=== PATIENT | female | born 1995 | race Caucasian/White ===

== ENCOUNTER 2016-07-13 18:40 | Emergency (ER) | payer OTHER ==
[2016-07-13 18:52] VITALS: BP 142/91; PULSE 79; TEMP 98.6
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
[2016-07-13 19:28] VITALS: RESP 18
--- NOTE | 2016-07-13 19:33 | XR ---
EXAMINATION TYPE: XR ankle complete LT DATE OF EXAM: 07/13/2016 7:13 PM COMPARISON: NONE HISTORY: Ankle pain TECHNIQUE: 3 views FINDINGS: There is soft tissue swelling around the ankle joint. I see no fracture nor dislocation. An kle mortise is anatomic. IMPRESSION: Soft tissue swelling. No fracture.
== END 2016-07-13 19:55 | disposition home or self-care (01) ==
LOC: EC 18:40
DX: S93.402A Sprain of unspecified ligament of left ankle, initial encounter (principal); Z79.899 Other long term (current) drug therapy; V87.8XXA Person injured in other specified noncollision transport accidents involving motor vehicle (traffic), initial encounter; X50.1XXA Overexertion from prolonged static or awkward postures, initial encounter; Y92.410 Unspecified street and highway as the place of occurrence of the external cause
CPT/HCPCS: 99284

== ENCOUNTER 2018-11-13 17:29 | Emergency (ER) | payer OTHER ==
[2018-11-13] MEDS ORDERED: SODIUM CHLORIDE 0.9% 1,000 ML IV STA (18:09)
[2018-11-13 18:20] LABS: Anisocytosis Slight; HCT 39.2 % (34.0-46.0); HGB 13.4 gm/dL (11.4-16.0); MCHC 34.2 g/dL (31.0-37.0); MCV 76.2 fL (80.0-100.0); Mean Platelet Volume 7.5; Microcytosis Slight; Platelet Count 214 k/uL (150-450); RBC 5.14 m/uL (3.80-5.40); RDW 16.8 % (11.5-15.5); WBC 6.6 k/uL (3.8-10.6)
[2018-11-13 18:33] LABS: ALT 48 U/L (9-52); AST 77 U/L (14-36); African American GFR (CKD) >90 (>60 ml/min/1.73 sqM); Albumin 4.1 g/dL (3.5-5.0); Alkaline Phosphatase 161 U/L (38-126); Amylase 60 U/L (30-110); Anion Gap 10 mmol/L; Blood Urea Nitrogen 10 mg/dL (7-17); Carbon Dioxide 26 mmol/L (22-30); Chloride 99 mmol/L (98-107); Glucose 103 mg/dL (74-99); Non-African American GFR(CKD) 87 (>60 ml/min/1.73 sqM); Potassium 3.7 mmol/L (3.5-5.1); Sodium 135 mmol/L (137-145); Total Bilirubin 1.6 mg/dL (0.2-1.3); Total Protein 7.9 g/dL (6.3-8.2)
--- NOTE | 2018-11-13 18:34 | ED ---
Abdominal Pain HPI - General Chief Complaint: Abdominal Pain Stated Complaint: abdominal pain x 1 week, not eating Time Seen by Provider: 11/13/18 17:48 Source: patient Mode of arrival: ambulatory Limitations: no limitations - History of Present Illness Initial Comments: Patient is a 23-year-old female presenting to emergency Department with a chief complaint of abdominal pain. Patient reports nausea and vomiting for the last 7 days without improvement. Patient reports worsen she developed left flank pain that is exacerbated with flexion of the left side. Patient reports poor by mouth intake. Patient reports going to the urgent care on Wednesday who noticed elevated bilirubin levels and suggested follow-up with primary care. Patient followed up the following day with primary care who performed a urine dip and decided to treat the patient for UTI. Patient is currently on the third day of Bactrim with minimal improvement. Patient reports yesterday she noticed dark stool and is symptoms develop generalized suprapubic tenderness. Patient denies increased urgency, frequency or dysuria patient denies vaginal discharge or bleeding. Patient denies hematuria. Patient is taking oral contraceptives and her last menstrual period was on October 25. Patient is not concerned for STDs or . Patient denies fever, chest pain, chest tightness, night sweats or chills. - Related Data Home Medications Medication Instructions Recorded Confirmed Omeprazole 20 mg PO DAILY 07/13/16 10/12/16 Allergies Allergy/AdvReac Type Severity Reaction Status Date / Time No Known Allergies Allergy Verified 11/13/18 17:34 Review of Systems ROS Statement: Those systems with pertinent positive or pertinent negative responses have been documented in the HPI. ROS Other: All systems not noted in ROS Statement are negative. Past Medical History Past Medical History: No Reported History History of Any Multi-Drug Resistant Organisms: None Reported Past Surgical History: No Surgical Hx Reported Past Psychological History: No Psychological Hx Reported Smoking Status: Never smoker Past Alcohol Use History: None Reported Past Drug Use History: None Reported General Exam Limitations: no limitations General appearance: alert, in no apparent distress Head exam: Present: atraumatic, normocephalic, normal inspection Eye exam: Present: normal appearance, PERRL, EOMI Pupils: Present: normal accommodation ENT exam: Present: normal exam, mucous membranes moist, normal external ear exam Neck exam: Present: normal inspection, full ROM Respiratory exam: Present: normal lung sounds bilaterally Cardiovascular Exam: Present: regular rate, normal rhythm, normal heart sounds GI/Abdominal exam: Present: soft, normal bowel sounds. Absent: tenderness (Mild, generalized suprapubic tenderness) Extremities exam: Present: normal inspection, full ROM Back exam: Present: normal inspection, full ROM Neurological exam: Present: alert, oriented X3 Psychiatric exam: Present: normal affect, normal mood Skin exam: Present: warm, intact, normal color Course Vital Signs 11/13/18 11/13/18 17:30 20:00 Temperature 99.2 F 98.7 F Pulse Rate 106 H 98 Respiratory 20 17 Rate Blood Pressure 131/84 133/91 O2 Sat by Pulse 96 96 Oximetry Medical Decision Making - Medical Decision Making Patient is a 23-year-old male presenting to emergency Department with a chief complaint of abdominal pain. Urine hCG is negative. UA is showing a possible UTI although I have very low suspicion as patient is asymptomatic. And the urine sample appears to be contaminated. AST is elevated with 2:1 ratio AST to ALT. I have low suspicion for a kidney stone due to the severity of the pain in the left flank region that appears to be exacerbated with specific anatomical positions. Mother and patient advised to follow-up with primary care regarding the elevated bilirubin and liver enzymes. KUB is unremarkable. On physical examination the patient does not appear to be in discomfort. At this time I have low suspicion for any acute abdominal pathology. Patient had her last nausea. About 2 weeks ago and is on oral contraceptives. Patient denies any discharge or vaginal bleeding. Patient is not concerned for STDs. Patient declined pelvic exam. Patient advised to follow-up with primary care for further treatment. Strict return parameters were thoroughly discussed with patient and parent were understanding and agreeable. Case discussed with physician. - Lab Data Result diagrams: 11/13/18 18:00 11/13/18 18:00 Lab Results 11/13/18 11/13/18 11/13/18 Range/Units 18:00 18:00 18:00 WBC 6.6 (3.8-10.6) k/uL RBC 5.14 (3.80-5.40) m/uL Hgb 13.4 (11.4-16.0) gm/dL Hct 39.2 (34.0-46.0) % MCV 76.2 L (80.0-100.0) fL MCH 26.0 (25.0-35.0) pg MCHC 34.2 (31.0-37.0) g/dL RDW 16.8 H (11.5-15.5) % Plt Count 214 (150-450) k/uL Neutrophils % (Manual) 51 % Lymphocytes % (Manual) 32 % Monocytes % (Manual) 13 % Eosinophils % (Manual) 4 % Neutrophils # (Manual) 3.37 (1.3-7.7) k/uL Lymphocytes # (Manual) 2.11 (1.0-4.8) k/uL Monocytes # (Manual) 0.86 (0-1.0) k/uL Eosinophils # (Manual) 0.26 (0-0.7) k/uL Nucleated RBCs 0 (0-0) /100 WBC Manual Slide Review Performed Anisocytosis Slight Microcytosis Slight Sodium 135 L (137-145) mmol/L Potassium 3.7 (3.5-5.1) mmol/L Chloride 99 (98-107) mmol/L Carbon Dioxide 26 (22-30) mmol/L Anion Gap 10 mmol/L BUN 10 (7-17) mg/dL Creatinine 0.94 (0.52-1.04) mg/dL Est GFR (CKD-EPI)AfAm >90 (>60 ml/min/1.73 sqM) Est GFR (CKD-EPI)NonAf 87 (>60 ml/min/1.73 sqM) Glucose 103 H (74-99) mg/dL Calcium 9.0 (8.4-10.2) mg/dL Total Bilirubin 1.6 H (0.2-1.3) mg/dL AST 77 H (14-36) U/L ALT 48 (9-52) U/L Alkaline Phosphatase 161 H (38-126) U/L Total Protein 7.9 (6.3-8.2) g/dL Albumin 4.1 (3.5-5.0) g/dL Amylase 60 (30-110) U/L Lipase 90 (23-300) U/L Urine Color Dark Brown Urine Appearance Cloudy H (Clear) Urine pH 6.5 (5.0-8.0) Ur Specific [place] 1.028 (1.001-1.035) Urine Protein 1+ H (Negative) Urine Glucose (UA) Negative (Negative) Urine Ketones Trace H (Negative) Urine Blood Negative (Negative) Urine Nitrite Negative (Negative) Urine Bilirubin 2+ H (Negative) Urine Urobilinogen >12.0 (<2.0) mg/dL Ur Leukocyte Esterase Large H (Negative) Urine RBC 4 (0-5) /hpf Urine WBC 57 H (0-5) /hpf Ur Squamous Epith Cells 24 H (0-4) /hpf Amorphous Sediment Rare H (None) /hpf Urine Bacteria Occasional H (None) /hpf Hyaline Casts 3 H (0-2) /lpf Urine Mucus Moderate H (None) /hpf Urine HCG, Qual (Not Detectd) 11/13/18 Range/Units 18:00 WBC (3.8-10.6) k/uL RBC (3.80-5.40) m/uL Hgb (11.4-16.0) gm/dL Hct (34.0-46.0) % MCV (80.0-100.0) fL MCH (25.0-35.0) pg MCHC (31.0-37.0) g/dL RDW (11.5-15.5) % Plt Count (150-450) k/uL Neutrophils % (Manual) % Lymphocytes % (Manual) % Monocytes % (Manual) % Eosinophils % (Manual) % Neutrophils # (Manual) (1.3-7.7) k/uL Lymphocytes # (Manual) (1.0-4.8) k/uL Monocytes # (Manual) (0-1.0) k/uL Eosinophils # (Manual) (0-0.7) k/uL Nucleated RBCs (0-0) /100 WBC Manual Slide Review Anisocytosis Microcytosis Sodium (137-145) mmol/L Potassium (3.5-5.1) mmol/L Chloride (98-107) mmol/L Carbon Dioxide (22-30) mmol/L Anion Gap mmol/L BUN (7-17) mg/dL Creatinine (0.52-1.04) mg/dL Est GFR (CKD-EPI)AfAm (>60 ml/min/1.73 sqM) Est GFR (CKD-EPI)NonAf (>60 ml/min/1.73 sqM) Glucose (74-99) mg/dL Calcium (8.4-10.2) mg/dL Total Bilirubin (0.2-1.3) mg/dL AST (14-36) U/L ALT (9-52) U/L Alkaline Phosphatase (38-126) U/L Total Protein (6.3-8.2) g/dL Albumin (3.5-5.0) g/dL Amylase (30-110) U/L Lipase (23-300) U/L Urine Color Urine Appearance (Clear) Urine pH (5.0-8.0) Ur Specific [place] (1.001-1.035) Urine Protein (Negative) Urine Glucose (UA) (Negative) Urine Ketones (Negative) Urine Blood (Negative) Urine Nitrite (Negative) Urine Bilirubin (Negative) Urine Urobilinogen (<2.0) mg/dL Ur Leukocyte Esterase (Negative) Urine RBC (0-5) /hpf Urine WBC (0-5) /hpf Ur Squamous Epith Cells (0-4) /hpf Amorphous Sediment (None) /hpf Urine Bacteria (None) /hpf Hyaline Casts (0-2) /lpf Urine Mucus (None) /hpf Urine HCG, Qual Not Detected (Not Detectd) Disposition Clinical Impression: Abdominal pain Disposition: HOME SELF-CARE Condition: Stable Instructions (If sedation given, give patient instructions): Abdominal Pain (ED) Additional Instructions: Please follow with primary care. Please return to emergency department if symptoms worsen. Alternate between Tylenol and ibuprofen for pain control. Is patient prescribed a controlled substance at d/c from ED?: No Referrals: Yashira Hansen MD [Primary Care Provider] - 1-2 days Time of Disposition: 19:37
[2018-11-13 18:52] LABS: Amorphous Sediment,Urine Rare /hpf; Appearance,Urine Cloudy (Clear); Bacteria,Urine Occasional /hpf; Bilirubin,Urine 2+ (Negative); Blood,Urine Negative (Negative); Color,Urine Dark Brown; Glucose,Urine (UA) Negative (Negative); Hyaline Casts,Urine 3 /lpf (0-2); Ketones,Urine Trace (Negative); Leukocyte Esterase,Urine Large (Negative); Mucus,Urine Moderate /hpf; Nitrite,Urine Negative (Negative); PH, Urine 6.5 (5.0-8.0); Protein,Urine 1+ (Negative); RBC,Urine 4 /hpf (0-5); Specific Gravity,Urine 1.028 (1.001-1.035); Squamous Epithelial Cell,Urine 24 /hpf (0-4); Urobilinogen,Urine >12.0 mg/dL (<2.0); WBC,Urine 57 /hpf (0-5)
[2018-11-13 19:07] LABS: Eosinophils # (M) 0.26 k/uL (0-0.7); Lymphocytes # (M) 2.11 k/uL (1.0-4.8); Monocytes # (M) 0.86 k/uL (0-1.0); Neutrophils # (M) 3.37 k/uL (1.3-7.7); Neutrophils % (M) 51 %; Nucleated Red Blood Cells 0 /100 WBC (0-0); Total Cells Counted 100
--- NOTE | 2018-11-13 19:10 | XR ---
EXAMINATION TYPE: XR KUB DATE OF EXAM: 11/13/2018 COMPARISON: NONE HISTORY: Abdominal pain TECHNIQUE: 2 views upright FINDINGS: Bowel gas pattern is normal. There is no sign of intestinal obstruction or pneumoperitoneum . Fecal pattern is normal. Lung bases are clear. There are no pathologic calcifications. IMPRESSION: Nonacute abdomen.
[2018-11-13 20:09] VITALS: BP 133/91; PULSE 98; RESP 17; TEMP 98.7
== END 2018-11-13 20:01 | disposition home or self-care (01) ==
LOC: EC 17:29
DX: R10.31 Right lower quadrant pain (principal); R74.0 Nonspecific elevation of levels of transaminase and lactic acid dehydrogenase [LDH]; E80.7 Disorder of bilirubin metabolism, unspecified; R94.5 Abnormal results of liver function studies; R11.2 Nausea with vomiting, unspecified; R63.0 Anorexia; Z53.29 Procedure and treatment not carried out because of patient's decision for other reasons; Z79.899 Other long term (current) drug therapy
CPT/HCPCS: 36415; 74018; 80053; 81001; 81025; 82150; 83690; 85025; 87086; 96360; 99284

== ENCOUNTER → 2018-11-24 | Outpatient (CLI) | payer OTHER ==
--- NOTE | 2018-11-24 10:36 | NM ---
EXAMINATION TYPE: NM hepatobiliary w EF DATE OF EXAM: 11/24/2018 COMPARISON: NONE HISTORY: Upper abdominal lower abdominal pain per order. Diminished appetite with heartburn and reflu x nausea and vomiting all per patient. TECHNIQUE: After the intravenous administration of 5 mCi Tc 99m Mebrofenin hepatobiliary scintigraphy is performed. Immediate images post injection. FINDINGS: There is satisfactory initial accumulation of tracer by the liver. The gallbladder is not visualized even after 60 minutes. Gallbladder is then faintly visualized at 90 minutes and better visualized at 120 minutes. The small bowel activity is noted within 20 minutes. At one hour 8 ounces of oral ens ure plus is given to mimic CCK and gallbladder ejection fraction is calculated at 77 %, in the normal range. Therefore there is no scintigraphic evidence of cystic or common bile duct obstruction to gerber ggest acute cholecystitis or gallbladder dyskinesia. IMPRESSION: Exam is within normal limits.
== END | disposition home or self-care (01) ==
LOC: RADNMMAIN 06:53
PROVIDERS: ATTEND Nurse Practitioner
DX: R10.10 Upper abdominal pain, unspecified (principal); R10.30 Lower abdominal pain, unspecified
CPT/HCPCS: 78226; A9537

== ENCOUNTER → 2018-12-07 | Outpatient (CLI) | payer OTHER ==
--- NOTE | 2018-12-07 07:57 | US ---
EXAMINATION TYPE: US pelvis complete transvag DATE OF EXAM: 12/07/2018 COMPARISON: NONE CLINICAL HISTORY: R10.10 Upper abdominal pain R10.30 Lower abdominal. Large body habitus TECHNIQUE: . Transabdominal sonographic images of the pelvis were acquired. Transvaginal sonographi c images were medically necessary to better assess the following anatomy: ovaries Date of LMP: 11/23/2018 EXAM MEASUREMENTS: Uterus: 6.4 x 3.3 x3.6 cm Endometrial Stripe: 0.6 cm Right Ovary: 2.2 x 1.2 x 1.5 cm Left Ovary: 3.0 x 2.6 x2.6 cm 1. Uterus: Anteverted 2. Endometrium: wnl 3. Right Ovary: Dominant follicle noted 0.9 x 0.9 x 0.8 cm 4. Left Ovary: largest cyst septated 2.8 x 2.1 x 2.2 cm . Septations appears within upper there are multiple septations seen. 5. Bilateral Adnexa: Obscured by overlying bowel gas 6. Posterior cul-de-sac: wnl IMPRESSION: Complex 2.8 cm left ovarian cyst with internal septations for which follow-up ultrasound in 3 months is recommended to ensure resolution.
--- NOTE | 2018-12-07 07:59 | US ---
EXAMINATION TYPE: US abdomen complete DATE OF EXAM: 12/07/2018 COMPARISON: nuclear medicine 2019 CLINICAL HISTORY: R10.10 Upper abdominal pain R10.30 Lower abdominal. EXAM MEASUREMENTS: Liver Length: 19.8 cm Gallbladder Wall: 0.2 cm CBD: 0.2 cm Spleen: 11.6 cm Right Kidney: 10.6 x 4.1 x 4.7 cm Left Kidney: 10.4 x4.8 x 4.1 cm Pancreas: Obscured by bowel gas Liver: slightly heterogenous. Focal hyperechoic area near the fissure for the falciform ligament anjelica ures 1.1 x 1.0 cm and could represent fat near the fissure for the falciform ligament or a small renetta ngioma. Overall the liver is decreased in attenuation with suboptimal visualization of the portal tri ads. This most commonly relates to hepatic steatosis and limits evaluation of underlying hepatic mass es. Gallbladder: wnl Evidence for sonographic Ontiveros's sign: Yes CBD: wnl Spleen: wnl Right Kidney: wnl Left Kidney: wnl Upper IVC: wnl Abd Aorta: wnl The intrahepatic portion of the IVC and proximal abdominal aorta are within normal limits. There is no evidence of cholelithiasis. Common bile duct is unremarkable. The visualized portions of the keating creas are homogenous. The spleen is unremarkable. Kidneys are symmetric and free of hydronephrosis. No renal lesions are seen. IMPRESSION: 1. No sonographic evidence of cholelithiasis nor acute cholecystitis other than a positive sonographi c Ontiveros sign. Recent normal HIDA scan is noted on 11/24/2018. 2. Slightly heterogenous liver that most typically relates to hepatic steatosis. Correlate with liver function tests. Additionally there is a possible 1.1 cm solitary hepatic lesion. This most commonly represents a small hemangioma however could be further evaluated with three-phase CT if there is furt her clinical concern.
== END | disposition home or self-care (01) ==
LOC: RADUSWWP 06:55
PROVIDERS: ATTEND Family Medicine
DX: N83.292 Other ovarian cyst, left side (principal); R10.10 Upper abdominal pain, unspecified
CPT/HCPCS: 76700; 76830; 76856

== ENCOUNTER 2022-04-22 22:35 | Emergency (ER) | payer OTHER ==
[2022-04-22 22:57] VITALS: TEMP 98.3
--- NOTE | 2022-04-22 23:29 | XR ---
EXAMINATION TYPE: XR chest 2V DATE OF EXAM: 04/22/2022 COMPARISON: None HISTORY: Chest pain TECHNIQUE: FINDINGS: Heart is normal. Lungs are clear. Diaphragm is normal. Bony thorax appears normal. The pulm onary vascularity is normal. IMPRESSION: Normal chest.
--- NOTE | 2022-04-22 23:48 | ED ---
Abdominal Pain HPI - General Chief Complaint: Abdominal Pain Stated Complaint: Side Pain Time Seen by Provider: 04/22/22 23:05 Source: patient, RN notes reviewed Mode of arrival: ambulatory Limitations: no limitations - History of Present Illness Initial Comments: 26-year-old female presents emergency Department chief complaint of pain under her left sided rib. Patient states she's had pain in the past and comes and goes. Patient states usually in the right states is on the last presented her to the emergency room. She states pain resolved prior to come emergency department she denies any palpitations as feeling chills denies abdominal pain denies any change in bowel habits no nausea vomiting she does have a history reflux she is currently not on any medications. Patient denies any URI symptoms denies filter breath no leg painleg swelling - Related Data Home Medications Medication Instructions Recorded Confirmed Omeprazole 20 mg PO DAILY 07/13/16 10/12/16 Allergies Allergy/AdvReac Type Severity Reaction Status Date / Time Penicillins Allergy Unknown Verified 04/22/22 22:57 Sulfa (Sulfonamide Allergy Rash/Hives Verified 04/22/22 22:57 Antibiotics) Review of Systems ROS Statement: Those systems with pertinent positive or pertinent negative responses have been documented in the HPI. ROS Other: All systems not noted in ROS Statement are negative. Past Medical History Past Medical History: No Reported History History of Any Multi-Drug Resistant Organisms: None Reported Past Surgical History: Section Past Psychological History: No Psychological Hx Reported Past Alcohol Use History: None Reported Past Drug Use History: None Reported General Exam Limitations: no limitations General appearance: alert, in no apparent distress Head exam: Present: atraumatic, normocephalic, normal inspection Eye exam: Present: normal appearance, PERRL, EOMI. Absent: scleral icterus, conjunctival injection, periorbital swelling ENT exam: Present: normal exam, normal oropharynx, mucous membranes moist Neck exam: Present: normal inspection, full ROM. Absent: tenderness, meningismus, lymphadenopathy Respiratory exam: Present: normal lung sounds bilaterally. Absent: respiratory distress, wheezes, rales, rhonchi, stridor Cardiovascular Exam: Present: regular rate, normal rhythm, normal heart sounds. Absent: systolic murmur, diastolic murmur, rubs, gallop, clicks GI/Abdominal exam: Present: soft, normal bowel sounds. Absent: distended, tenderness, guarding, rebound, rigid Back exam: Absent: CVA tenderness (R), CVA tenderness (L) Neurological exam: Present: alert, oriented X3 Skin exam: Present: warm, dry, intact, normal color. Absent: rash Course Vital Signs 04/22/22 22:53 Temperature 98.3 F Pulse Rate 105 H Respiratory 16 Rate Blood Pressure 169/98 O2 Sat by Pulse 96 Oximetry Medical Decision Making - Medical Decision Making Was pt. sent in by a medical professional or institution (REJI Ralph, BUDGET COUNSELOR, urgent care, hospital, or assisted...) When possible be specific @ -No Did you speak to anyone other than the patient for history (EMS, parent, family, police, friend...)? What history was obtained from this source @ -No Did you review nursing and triage notes (agree or disagree)? Why? @ -I reviewed and agree with nursing and triage notes Were old charts reviewed (outside hosp., previous admission, EMS record, old EKG, old radiological studies, urgent care reports/EKG's, assisted records)? Report findings @ -No old charts were reviewed Differential Diagnosis (chest pain, altered mental status, abdominal pain women, abdominal pain men, vaginal bleeding, weakness, fever, dyspnea, syncope, headache, dizziness, GI bleed, back pain, seizure, CVA, palpatations, mental health)? @ -chest wall pain, abdominal pain, GERD, peptic ulcer,pneumonia, this this is not all inclusive. EKG interpreted by me (3pts min.). @ -None X-rays interpreted by me (1pt min.). @ -Chest x-ray unremarkable CT interpreted by me (1pt min.). @ -None done U/S interpreted by me (1pt. min.). @ -None done What testing was considered but not performed or refused? (CT, X-rays, U/S, labs)? Why? @ -Labs were considered though patient is asymptomatic What meds were considered but not given or refused? Why? @ -None Did you discuss the management of the patient with other professionals (professionals i.e. REJI Ralph, BUDGET COUNSELOR, lab, RT, psych nurse, social services director, research management associate, teacher, peace officer, briefcase sewer)? Give summary @ -No Was smoking cessation discussed for >3mins.? @ -No Was critical care preformed (if so, how long)? @ -No Were there social determinants of health that impacted care today? How? (Homelessness, low income, unemployed, alcoholism, drug addiction, transportation, low edu. Level, literacy, decrease access to med. care, retirement, rehab)? @ -No Was there de-escalation of care discussed even if they declined (Discuss DNR or withdrawal of care, Hospice)? DNR status @ -No What co-morbidities impacted this encounter? (DM, HTN, Smoking, COPD, CAD, Cancer, CVA, ARF, Chemo, Hep., AIDS, mental health diagnosis, sleep apnea, morbid obesity)? @ -None Was patient admitted / discharged? Hospital course, mention meds given and route, prescriptions, significant lab abnormalities, going to OR and other pertinent info. @ -Discharged patient is currently asymptomatic. Patient had some pain in her rib/upper abdomen which has not resolved. Patient will be discharged in stable condition after normal x-ray. Undiagnosed new problem with uncertain prognosis? @ -No Drug Therapy requiring intensive monitoring for toxicity (Heparin, Nitro, Insulin, Cardizem)? @ -No Were any procedures done? @ -No Diagnosis/symptom? @ -Abdominal pain Acute, or Chronic, or Acute on Chronic? @ -Acute Uncomplicated (without systemic symptoms) or Complicated (systemic symptoms)? @ -Uncomplicated Side effects of treatment? @ -No Exacerbation, Progression, or Severe Exacerbation? @ -No Poses a threat to life or bodily function? How? (Chest pain, [place], [place], pneumonia, PE, COPD, DKA, ARF, appy, cholecystitis, CVA, Diverticulitis, Homicidal, Suicidal, threat to staff... and all critical care pts) @ -No Disposition Clinical Impression: Abdominal pain Disposition: HOME SELF-CARE Condition: Stable Instructions (If sedation given, give patient instructions): Abdominal Pain (ED) Additional Instructions: Please return to the Emergency Department if symptoms worsen or any other concerns. Is patient prescribed a controlled substance at d/c from ED?: No Referrals: None,Stated [Primary Care Provider] - 1-2 days Time of Disposition: 23:48
[2022-04-23 00:01] VITALS: BP 128/89; PULSE 92; RESP 18
== END 2022-04-22 23:59 | disposition home or self-care (01) ==
LOC: EC 22:35
DX: R10.12 Left upper quadrant pain (principal); Z88.0 Allergy status to penicillin; Z88.2 Allergy status to sulfonamides
CPT/HCPCS: 71046; 99284